=== PATIENT | male | born 1960 | race Caucasian/White ===

== ENCOUNTER 2021-10-06 09:15 | Observation (INO) ==
[2021-10-06] MEDS ORDERED: Nitroglycerin 0.4 MG TAB.SUBL SL ONE (09:19)
[2021-10-06] MEDS: Nitroglycerin 0.4 MG TAB.SUBL SL PRN ×3 (09:21→09:37)
[2021-10-06 09:37] LABS: Basophils % 0.3 %; Eosinophils # 0.1 K/mcL (0.0-0.6); Eosinophils % 0.9 %; Hematocrit 38.9 % (37.5-50.1); Hemoglobin 13.2 g/dL (12.9-16.9); Immature Granulocytes % 0.5 % (0-4); Lymphocytes # 1.7 K/mcL (0.6-4.6); Lymphocytes % 12.8 %; Mean Corpuscular HGB Conc 33.9 g/dL (31.6-35.5); Mean Corpuscular Hemoglobin 29.4 pg (28.0-33.3); Mean Corpuscular Volume 86.6 fL (83.0-100.0); Mean Platelet Volume 8.7 fL (9.4-12.4); Monocytes # 1.1 K/mcL (0.0-1.3); Monocytes % 8.6 %; Neutrophils # 9.9 K/mcL (1.6-8.9); Platelet Count 363 K/mcL (140-400); Red Blood Count 4.49 M/mcL (4.19-5.50); Red Cell Distribution Width 13.6 % (11.5-14.5); Segmented Neutrophils % 76.9 %; White Blood Count 12.9 K/mcL (4.3-11.1)
[2021-10-06 09:41] LABS: Prothrombin Time 11.3 Seconds (9.4-12.1)
[2021-10-06 09:43] LABS: Activated Partial Thrombo Time 55.7 Seconds (26.0-36.0)
[2021-10-06] MEDS ORDERED: 0.9 % Sodium Chloride 500 ML IV ONE (09:46)
[2021-10-06 09:58] LABS: BUN/Creatinine Ratio 15 (6-26); Blood Urea Nitrogen 11 mg/dL (8-23); Calcium 10.3 mg/dL (8.6-10.3); Carbon Dioxide 23 mEq/L (23-29); Chloride 105 mEq/L (98-107); Glucose 133 mg/dL (70-105); Osmolality,Calculated 285 (280-300); Potassium 4.1 mEq/L (3.5-5.1); Sodium 137 mEq/L (136-145); Troponin I < 0.03 ng/mL (< 0.04); eGFR For African Americans > 60 (> 60); eGFR For Non-African Americans > 60 (> 60)
[2021-10-06] MEDS ORDERED: Naloxone 0.4 MG/ML INJ IVP PRN (10:27)
[2021-10-06 11:17] LABS: Chol/HDL Ratio 3.8 (0-4.9); Cholesterol 163 mg/dL (< 200); Ethanol < 10 mg/dL (Less than 10); HDL Cholesterol 43 mg/dL (40-59); LDL Cholesterol,Calculated 83 mg/dL (< 100); Triglycerides 183 mg/dL (< 150)
[2021-10-06 11:53] LABS: Estimated Average Glucose 105 mg/dl; Hemoglobin A1C 5.3 %
[2021-10-06] MEDS ORDERED: Isovue-370 500 ML BOTTLE IVP ONE (13:07)
[2021-10-06 13:49] LABS: Magnesium 1.8 mg/dL (1.6-2.6)
[2021-10-06] MEDS: sulfaSALAzine 500 MG TABLET PO SCH ×3 (14:04→21:39)
[2021-10-06] MEDS: Morphine Sulfate 2 MG/ML SYRINGE IVP PRN ×2 (14:05→19:59)
[2021-10-06] MEDS ORDERED: Perflutren Lipid Microsphere 1.3 ML in 0.9 % Sodium Chloride 8.7 ML IVP PRN (15:08)
[2021-10-06] MEDS: *HR* Heparin 5,000 UNIT/ML VIAL SQ SCH (17:01)
[2021-10-06 17:39] LABS: Bilirubin,Urine Negative (Negative); Blood,Urine Negative (Negative); Clarity,Urine Clear (Clear); Color,Urine Light-Yellow (Yellow); Glucose,Urine (UA) Normal (Normal); Ketones,Urine Negative (Negative); Leukocyte Esterase,Urine Negative (Negative); Nitrite,Urine Negative (Negative); Protein,Urine Negative (Neg-Trace); Specific Gravity,Urine > 1.030 (1.010-1.025); Urobilinogen,Urine Normal (Normal)
[2021-10-06] MEDS: Ondansetron 4 MG/2 ML VIAL IVP PRN (18:24)
[2021-10-07 01:20] LABS: Basophils % 0.3 %; Eosinophils # 0.2 K/mcL (0.0-0.6); Eosinophils % 2.4 %; Hemoglobin 12.4 g/dL (12.9-16.9); Immature Granulocytes % 0.3 % (0-4); Lymphocytes # 3.1 K/mcL (0.6-4.6); Lymphocytes % 36.2 %; Mean Corpuscular HGB Conc 34.4 g/dL (31.6-35.5); Mean Corpuscular Volume 87.2 fL (83.0-100.0); Monocytes % 11.2 %; Neutrophils # 4.3 K/mcL (1.6-8.9); Platelet Count 325 K/mcL (140-400); Red Blood Count 4.13 M/mcL (4.19-5.50); Red Cell Distribution Width 14.1 % (11.5-14.5); Segmented Neutrophils % 49.6 %; White Blood Count 8.7 K/mcL (4.3-11.1)
[2021-10-07 01:40] LABS: BUN/Creatinine Ratio 9 (6-26); Blood Urea Nitrogen 8 mg/dL (8-23); Calcium 9.5 mg/dL (8.6-10.3); Carbon Dioxide 23 mEq/L (23-29); Chloride 107 mEq/L (98-107); Glucose 103 mg/dL (70-105); Magnesium 1.9 mg/dL (1.6-2.6); Osmolality,Calculated 283 (280-300); Phosphorous 3.6 mg/dL (2.7-4.5); Potassium 3.7 mEq/L (3.5-5.1); Sodium 137 mEq/L (136-145); eGFR For African Americans > 60 (> 60); eGFR For Non-African Americans > 60 (> 60)
[2021-10-07] MEDS: *HR* Heparin 5,000 UNIT/ML VIAL SQ SCH ×2 (06:16→16:56)
[2021-10-07] MEDS ORDERED: Regadenoson 0.4 MG/5 ML SYRINGE IVP ONE (06:35)
[2021-10-07] MEDS: Ondansetron 4 MG/2 ML VIAL IVP PRN ×3 (07:11→23:07)
[2021-10-07] MEDS: Morphine Sulfate 2 MG/ML SYRINGE IVP PRN ×3 (07:11→23:07)
[2021-10-07] MEDS: Folic Acid 1 MG TABLET PO SCH (08:51)
[2021-10-07] MEDS: Aspirin Enteric Coated 81 MG Tablet PO SCH (08:51)
[2021-10-07] MEDS: lisinopriL 20 MG TABLET PO SCH (08:51)
[2021-10-07] MEDS: sulfaSALAzine 500 MG TABLET PO SCH ×4 (08:51→20:01)
[2021-10-07] MEDS ORDERED: carvediloL 6.25 MG TABLET PO SCH (09:00)
[2021-10-07] MEDS ORDERED: Melatonin 3 MG TABLET PO PRN (22:59)
[2021-10-08] MEDS: *HR* Heparin 5,000 UNIT/ML VIAL SQ SCH (05:40)
[2021-10-08] MEDS ORDERED: carvediloL 6.25 MG TABLET PO SCH (08:00)
[2021-10-08] MEDS: sulfaSALAzine 500 MG TABLET PO SCH (09:03)
[2021-10-08] MEDS: Aspirin Enteric Coated 81 MG Tablet PO SCH (09:04)
[2021-10-08] MEDS: Folic Acid 1 MG TABLET PO SCH (09:04)
[2021-10-08] MEDS: lisinopriL 20 MG TABLET PO SCH (09:44)
[2021-10-08 10:41] VITALS: BP 113/76; PULSE 93; TEMP 97.8; O2SAT 93
== END 2021-10-08 12:23 | disposition home or self-care (01) ==
LOC: 2ANU 09:15 → EMEROOARM 09:15 → SUATTDRO 10:49 → 2ANU 11:39
PROVIDERS: ADMIT Family Medicine; ATTEND Internal Medicine